=== PATIENT | male | born 1945 | race Caucasian/White ===

== ENCOUNTER 2017-11-14 12:57 | Outpatient (CLI) | payer MEDICARE ==
--- NOTE | 2017-11-14 13:23 | RAD ---
LEFT KNEE FOUR VIEWS: History: Left knee pain. FINDINGS: Mild tricompartmental osteophytosis. Chondrocalcinosis. Small amount of fluid distends the suprapatel lar bursa. Joint spaces are preserved. IMPRESSION: Mild osteoarthritic changes left knee with small joint effusion. POS: NAKIA
== END 2017-11-14 12:58 | disposition home or self-care (01) ==
LOC: MADRAD 12:57
PROVIDERS: ATTEND Obstetrics & Gynecology
DX: M25.562 Pain in left knee (principal); M17.12 Unilateral primary osteoarthritis, left knee; M25.462 Effusion, left knee

== ENCOUNTER 2025-04-02 12:23 | Outpatient (CLI) | payer MEDICARE ==
[2025-04-02 12:48] LABS: Hematocrit 47.2 % (42.0-52.0); Hemoglobin 15.5 g/dL (14.0-18.0)
[2025-04-02 13:00] LABS: Anion Gap 15 mmol/L (10-20); BUN (Urea Nitrogen) 25 mg/dL (8.4-25.7); Calc. Creatinine Clearance 0 mL/min (70-130); Calcium 9.9 mg/dL (7.8-10.44); Carbon Dioxide 23 mmol/L (23-31); Chloride 107 mmol/L (98-107); Glucose 234 mg/dL (83-110); Potassium 4.6 mmol/L (3.5-5.1); Sodium 140 mmol/L (136-145)
[2025-04-02 16:55] LABS: Protein, Urine Random Quant Less than 10 mg/dL (1-14)
== END 2025-04-02 12:24 | disposition home or self-care (01) ==
LOC: MADLAB 12:23
PROVIDERS: ATTEND Internal Medicine Nephrology
DX: I13.0 Hypertensive heart and chronic kidney disease with heart failure and stage 1 through stage 4 chronic kidney disease, or unspecified chronic kidney disease (principal); I50.9 Heart failure, unspecified; N18.30 Chronic kidney disease, stage 3 unspecified; D63.1 Anemia in chronic kidney disease; R80.9 Proteinuria, unspecified
CPT/HCPCS: 36415; 80048; 82306; 82570; 83970; 84156; 85014; 85018